=== PATIENT | female | born 1975 | race African-American/Black ===

== ENCOUNTER 2021-03-30 18:34 | Emergency (ER) | payer OTHER ==
[~2021-03-30] VITALS: Ht 162.6 cm; Wt 70.3 kg
[~2021-03-30 18:34] MED LIST: NOHOMEMEDICATIONS; TRAMADOL 50 MG50 MG PO; ULTRAM 50MG TAB50 MG PO; ZOFRAN4 MG PO
[2021-03-30] MEDS ORDERED: CYCLOBENZAPRINE5 MG PO (22:35)
[2021-03-30 22:59] VITALS: BP 136/95
== END 2021-03-30 22:59 | disposition home or self-care (01) ==
LOC: ER 18:34
DX: S33.5XXA Sprain of ligaments of lumbar spine, initial encounter (principal); Z88.0 Allergy status to penicillin; V87.7XXA Person injured in collision between other specified motor vehicles (traffic), initial encounter; Y93.89 Activity, other specified; Y92.89 Other specified places as the place of occurrence of the external cause; Y99.8 Other external cause status